=== PATIENT | female | born 1955 | race Caucasian/White ===

== ENCOUNTER 2016-12-11 13:51 | Day surgery (SDC) | payer OTHER ==
[~2016-12-11] VITALS: Ht 160 cm; Wt 101.5 kg
[2016-12-11 15:48] VITALS: Ht 160 cm; Wt 101.5 kg
[2016-12-11] MEDS ORDERED: PROPOFOL 40 ML ONE (15:58)
[2016-12-11] MEDS ORDERED: DIPHENHYDRAMINE (15:58)
[2016-12-11] MEDS ORDERED: CYCLOBENZAPRINE (15:58)
[2016-12-11] MEDS ORDERED: NAPROSYN (15:58)
[2016-12-11] MEDS ORDERED: BP MED (15:58)
[2016-12-11] MEDS ORDERED: SERTRALINE (15:58)
[2016-12-11 16:00] VITALS: BP 127/84; PULSE 72; RESP 24
[2016-12-11 16:55] VITALS: BP 139/64; PULSE 72; RESP 21
--- NOTE | 2016-12-11 18:41 | GILP ---
DATE OF PROCEDURE: 12/11/2016 NAME OF PROCEDURES: 1. Esophagogastroduodenoscopy and biopsy. 2. Flexible sigmoidoscopy. SURGEON: Danelle Dunaway MD PREOPERATIVE DIAGNOSES: 1. Abdominal pain. 2. Chronic heartburn. 3. Screening colonoscopy. POSTOPERATIVE DIAGNOSES: 1. Hiatal hernia. 2. Gastroesophageal reflux disease. 3. Gastritis with erosions. 4. Gastric mucosal biopsies were taken for H. pylori test. 5. Poor prep with solid stool preventing complete colonoscopy. INDICATION FOR THE PROCEDURE: Ms. Quique Fierro is a 61-year-old female patient who had upper ab dominal pain and chronic heartburn, not responding to therapy. Patient also needed screening colono scopy. The procedure and possible complications were explained to the patient. The patient understood and consented to the procedure. DESCRIPTION OF PROCEDURE: Under the influence of anesthesia, the gastroscope was carefully introduc ed into the esophagus and under direct vision, it was advanced to the stomach and to the pylorus int o the duodenal bulb and descending duodenum. FINDINGS: ESOPHAGUS: The patient had hiatal hernia and gastroesophageal reflux disease. STOMACH: She had gastritis with erosions. Gastric mucosal biopsies were taken for H. pylori test. DUODENUM: Normal. The colonoscope was carefully introduced in the rectum and it was advanced to the sigmoid colon. FINDINGS: The patient had poor prep with solid stool preventing complete colonoscopy so the procedu re was terminated. She tolerated the procedure very well and there was no complication from the procedures. At the end of the procedures, she was awake with stable vital signs and she was discharged home to the care of her family. IMPRESSION: 1. Hiatal hernia. 2. Gastroesophageal reflux disease. 3. Gastritis with erosions. 4. Gastric mucosal biopsies were taken for Helicobacter pylori test. 5. Poor prep with solid stool preventing complete colonoscopy. PLAN: 1. Omeprazole 40 mg p.o. q.a.m. 2. Await Helicobacter pylori test report. 3. The patient will need repeat colonoscopy with better preparation. Dictated By: DANELLE IRAHETA/GILBERTO Conf#: [id number] DID#: [id number]
== END 2016-12-11 17:53 | disposition home or self-care (01) ==
LOC: GIL 13:51
PROVIDERS: ATTEND Internal Medicine Gastroenterology
DX: Z12.11 Encounter for screening for malignant neoplasm of colon (principal); K44.9 Diaphragmatic hernia without obstruction or gangrene; K21.9 Gastro-esophageal reflux disease without esophagitis; K29.60 Other gastritis without bleeding; I10 Essential (primary) hypertension; E66.9 Obesity, unspecified; Z68.39 Body mass index [BMI] 39.0-39.9, adult
CPT/HCPCS: 43239; 45330; 87081; Z7610